=== PATIENT | female | born 1935 | race Caucasian/White ===

== ENCOUNTER 2017-01-28 18:43 | Emergency (ER) | payer MEDICARE ==
[2017-01-28] MEDS ORDERED: predniSONE 10 MG TABLET PO ONE (19:24)
[2017-01-28] MEDS ORDERED: MAGNESIUM SULFATE 1 GM/100 ML IV ONE (19:52)
[2017-01-28] MEDS ORDERED: PIGGYBACK IV ONE (19:52)
[2017-01-28] MEDS ORDERED: NORMAL SALINE 250 ML IV ONE (19:52)
[2017-01-28] MEDS ORDERED: ALBUTEROL 0.083% 2.5 MG/3 ML VIAL.NEB INHALATION ONE (19:54)
[2017-01-28] MEDS ORDERED: IPRATROPIUM BROMIDE 0.5 MG/2.5 ML NEB ONE (19:55)
--- NOTE | 2017-01-28 20:54 | ER NURSING DOCUMENTATION ---
Nurse's Notes [facility] Name:Nicolle Madrid Age:81 yrs Sex:Female :1935 Arrival Date:01/28/2017 Time:18:43 Bed5 Private MD:No PCP, Identified Diagnosis:Asthma with Acute Exacerbation Presentation: 01/28 18:48 Presenting complaint: Patient states: at altitude since Friday night. Developed lpr worsening SOB today. Used her Combivent "too many times" today. Transition of care: patient was not received from another setting of care. 18:48 Acuity: ALLY 2 lpr 18:48 Method Of Arrival: Walk In lpr Triage Assessment: 18:50 Respiratory: Breath sounds with wheezes bilaterally. Reports shortness of breath at lpr rest Onset: The symptoms/episode began/occurred yesterday, the patient has moderate shortness of breath. Historical: - Allergies: No known drug Allergies; - Home Meds: 1. Singulair Oral 2. Combivent Inhl 3. prevastatin 4. levothyroxine oral - PMHx: HYPOTHYROIDISM; ASTHMA; hyperlipidemia; - PSHx: None; - Tetanus: < 10 years. - Ebola Screening: : Patient negative for fever greater than or equal to 101.5 degrees Fahrenheit, and additional compatible Ebola Virus Disease symptoms. Patient denies exposure to infectious person. Patient denies travel to an Ebola-affected area in the 21 days before illness onset. No symptoms or risks identified at this time. . - Immunization history: Pneumococcal vaccine is up to date, Flu Vaccine < 1 year. - Social history: Smoking status: Patient states was never smoker of tobacco. Patient/guardian denies using alcohol, street drugs. Screenin:27 Infectious Disease Risk Other: MRSA. Abuse screen: Denies threats or abuse. Nutritional mk2 screening: No deficits noted. Assessment: 19:27 Pain: Denies pain. Cardiovascular: Heart tones S1 S2. Cardiovascular: Rhythm is mk2 regular. Respiratory: Airway is patent Respiratory effort is labored, Respiratory pattern is tachypnea Breath sounds with rhonchi. 19:59 Reassessment: Pt has wheezing in the lower and upper R lobes. Pt states she is feeling mk2 much better. . Vital Signs: 18:48 BP 153 / 77; Pulse 103; Resp 30; Temp 97.7(O); Pulse Ox 95% on R/A; Weight 85.28 kg lpr (R); Height 5 ft. 10 in. (177.80 cm) (R); Pain 0/10; 19:56 Pulse Ox 98% ; mk2 19:56 BP 146 / 61; Pulse 78; Resp 20; Temp 98.3; Pulse Ox 96% on R/A; Pain 0/10; mk2 20:45 BP 130 / 63; Pulse 80; Resp 20; Temp 98.2; Pulse Ox 91% on R/A; mv 18:48 Body Mass Index 26.97 (85.28 kg, 177.80 cm) lpr ED Course: 18:44 Patient arrived in ED. ds 18:44 No PCP, Identified is Private Physician. ds 18:47 Iam Grant MD is Attending Physician. jm 18:48 Triage completed. lpr 19:26 Marilee Cowart, RN is Primary Nurse. mk2 19:26 Inserted peripheral IV: 20 gauge in left antecubital area and blood collected. mk2 19:26 Valuables Remains with patient. Pulse ox on. NIBP on. Warm blanket given. mk2 19:57 Patient moved to radiology. tt 19:59 Resting quietly. mk2 20:18 Patient moved back from radiology. tt Administered Medications: 19:10 Drug: predniSONE 40 mg; Route: PO; mv 19:29 Follow up: Response: No adverse reaction 2 19:19 Drug: Albuterol - Atrovent (2.5 mg - 0.5 mg) 3 ml; Route: Nebulizer; 2 19:29 Follow up: Response: No adverse reaction 2 19:28 Drug: DuoNeb (Albuterol 2.5 mg, Atrovent 0.5 mg); 3 ml; Route: Nebulizer; mk2 19:29 Follow up: Response: No adverse reaction 2 19:57 Drug: Magnesium Sulfate 1 grams; Route: IVPB; Infused Over: 30 mins; Site: left [facility] antecubital; 20:25 Follow up: IV Status: Completed infusion mv Outcome: 20:21 Discharge ordered by . bailey 20:45 Discharged to home mv 20:45 Condition: improved 20:45 Discharge Assessment: Patient awake, alert and oriented x 3. No cognitive and/or functional deficits noted. Patient verbalized understanding of disposition instructions. 20:45 Discharge instructions given to patient, Instructed on discharge instructions, follow up and referral plans. medication usage. 20:49 IV D/Russell mv 20:53 Patient left the ED. mv Signatures: Kisha Hartman, CHUCHO RN anabell Moody, Sofia, Iam Redd MD MD jm Terriere, Tracy tt Roberts, Leslie, RN RN lpr Kruger, Meg, RN RN mk2 bo barrett mv
--- NOTE | 2017-01-28 20:54 | ER PHYSICIAN DOCUMENTATION ---
Physician Documentation [facility] Name:Nicolle Madrid Age:81 yrs Sex:Female :1935 Arrival Date:01/28/2017 Time:18:43 Bed5 Private MD:No PCP, Identified ED Iam Hunter Disposition: 01/28/17 20:21 Discharged to Home/Self Care. Impression: Asthma with Acute Exacerbation. - Condition is Good. - Discharge Instructions: ASTHMA, Acute (Adult). - Prescriptions for Prednisone 20 mg Oral Tablet - take 2 tablet by ORAL route once daily for 5 days; 10 tablet. - Medical Reconciliation form form. - Follow up: Private Physician; When: 1 - 2 days; Reason: Continuance of care. - Problem is new. - Symptoms have improved. HPI: 01/28 19:31 This 81 yrs old Female presents to ER via Walk In with complaints of jm Shortness Of Breath. 19:31 The patient has shortness of breath at rest. Onset: The symptom(s)/episode jm began/occurred yesterday, and became worse today. Duration: The symptoms are continuous. The patient's shortness of breath is alleviated by nothing. Associated signs and symptoms: Pertinent positives: wheezing and cough. Severity of symptoms: At their worst the symptoms were severe. The patient has experienced similar episodes in the past, and the symptoms today are exactly the same, to when the patient was apparently diagnosed with asthma attacks . The patient has not recently seen a physician. Pt up here from [place] and has been w[facility] lot. Pt started some wheezing yesterday and her Combivent is not helping. She got worse and worse, so she came here. . Historical: - Allergies: No known drug Allergies; - Home Meds: 1. Singulair Oral 2. Combivent Inhl 3. prevastatin 4. levothyroxine oral - PMHx: HYPOTHYROIDISM; ASTHMA; hyperlipidemia; - PSHx: None; - Tetanus: < 10 years. - Ebola Screening: : Patient negative for fever greater than or equal to 101.5 degrees Fahrenheit, and additional compatible Ebola Virus Disease symptoms. Patient denies exposure to infectious person. Patient denies travel to an Ebola-affected area in the 21 days before illness onset. No symptoms or risks identified at this time. . - Immunization history: Pneumococcal vaccine is up to date, Flu Vaccine < 1 year. - Social history: Smoking status: Patient states was never smoker of tobacco. Patient/guardian denies using alcohol, street drugs. ROS: 22:55 Constitutional: Negative for fatigue, fever. 22:55 Cardiovascular: Negative for 22:55 Respiratory: Positive for cough, shortness of breath, wheezing, Negative for orthopnea. 22:55 Neuro: Negative for altered mental status, dizziness, gait disturbance. Vital Signs: 18:48 BP 153 / 77; Pulse 103; Resp 30; Temp 97.7(O); Pulse Ox 95% on R/A; Weight 85.28 kg lpr (R); Height 5 ft. 10 in. (177.80 cm) (R); Pain 0/10; 19:56 Pulse Ox 98% ; mk2 19:56 BP 146 / 61; Pulse 78; Resp 20; Temp 98.3; Pulse Ox 96% on R/A; Pain 0/10; mk2 20:45 BP 130 / 63; Pulse 80; Resp 20; Temp 98.2; Pulse Ox 91% on R/A; mv 18:48 Body Mass Index 26.97 (85.28 kg, 177.80 cm) lpr MDM: 18:47 Patient medically screened. 01/29 06:03 Order name: SPUTUM CULTURE AND GRAM STAIN [facility] 01/29 10:20 Order name: CXR 2V [id number] [facility] 01/28 18:48 Order name: Oxygen; Complete Time: 19:29 01/28 18:48 Order name: Pulse Ox Continuous; Complete Time: 19:29 01/28 19:25 Order name: Iv Saline Lock; Complete Time: 19:29 Dispensed Medications: 19:10 Drug: predniSONE 40 mg; Route: PO; mv 19:29 Follow up: Response: No adverse reaction mk2 19:19 Drug: Albuterol - Atrovent (2.5 mg - 0.5 mg) 3 ml; Route: Nebulizer; mk2 19:29 Follow up: Response: No adverse reaction mk2 19:28 Drug: DuoNeb (Albuterol 2.5 mg, Atrovent 0.5 mg); 3 ml; Route: Nebulizer; mk2 19:29 Follow up: Response: No adverse reaction mk2 19:57 Drug: Magnesium Sulfate 1 grams; Route: IVPB; Infused Over: 30 mins; Site: left mk2 antecubital; 20:25 Follow up: IV Status: Completed infusion mv Signatures: Kisha Hartman RN RN lc Meyer, John, MD MD jm Kruger, Meg, RN RN mk2 bo barrett mv
--- NOTE | 2017-01-29 10:10 | RADIOLOGY REPORT ---
Two views of the chest, without prior films for comparison, demonstrate the cardiac silhouette to be mildly enlarged. Pulmonary vasculature is unremarkable. There are findings consistent with a 13 cm hiatal hernia. Lung ibrahim are otherwise clear. IMPRESSION: 1. Mild enlargement of the cardiac silhouette. 2. Findings consistent with 13 cm hiatal hernia. MTDD
== END 2017-01-28 20:54 | disposition home or self-care (01) ==
LOC: ER 18:43
DX: J45.901 Unspecified asthma with (acute) exacerbation (principal); Z79.899 Other long term (current) drug therapy
CPT/HCPCS: 71020; 87070; 87205; 94640; 96365; 99284; J3475; J7050; J7512; J7613; J7644